=== PATIENT | male | born 1970 | race Caucasian/White ===

== ENCOUNTER 2019-05-15 18:36 | Emergency (ER) | payer BC ==
[~2019-05-15] VITALS: Ht 182.9 cm; Wt 110.7 kg
[2019-05-15] MEDS ORDERED: ASPIRIN 81 MG TAB.CHEW PO ONE (19:00)
[2019-05-15 19:08] LABS: BASO # 0.2 x10^3/uL (0.0-0.2); BASO % 1 % (0-3); EOS # 0.1 x10^3/uL (0.0-0.7); EOS % 1 % (0-3); HEMATOCRIT 47.4 % (39.0-53.0); LYMPH # 1.9 x10^3/uL (1.0-4.8); LYMPH % 14 % (24-48); MEAN CORPUSCULAR HEMOGLOBIN 28 pg (25-35); MEAN CORPUSCULAR HGB CONC 34 g/dL (31-37); MEAN CORPUSCULAR VOLUME 84 fL (79-100); MONO % 8 % (0-9); NEUT # 10.3 x10^3uL (1.8-7.7); NEUT % 76 % (31-73); PLATELET COUNT 252 x10^3/uL (140-400); RED BLOOD COUNT 5.63 x10^6/uL (4.30-5.70); RED CELL DISTRIBUTION WIDTH 14.1 % (11.5-14.5); WHITE BLOOD COUNT 13.5 x10^3/uL (4.0-11.0)
--- NOTE | 2019-05-15 19:14 | PHYS DOC ---
Past History Past Medical History: COPD, GERD, High Cholesterol, Hypertension, [place], Stroke Past Surgical History: Appendectomy, Cholecystectomy Alcohol Use: None Drug Use: None The HEART Score for CP Pts HEART Score for Chest Pain: HEART Score for Chest Pain Response (Comments) Value History Moderately Suspicious 1 ECG Nonspecific Repolarizatio 1 Age >45 - < 65 1 Risk Factors >3 Risk Factors or Hx CAD 2 Troponin < Normal Limit 0 Total 5 Risk Factors: Risk Factors: DM, Current or recent (<one month) smoker, HTN, HLP, family history of CAD, obesity. Risk Scores: Score 0 - 3: 2.5% MACE over next 6 weeks - Discharge Home Score 4 - 6: 20.3% MACE over next 6 weeks - Admit for Clinical Observation Score 7 - 10: 72.7% MACE over next 6 weeks - Early Invasive Strategies Adult General Chief Complaint Chief Complaint: CHEST PAIN HPI HPI 48-year-old male presents with chest pain that started around 4 PM. This is 3 hours ago. The patient was sitting in a chair working on some deer meat when the pain started. It is a moderate pressure sensation in the left side of his chest and upper abdomen. He is also feeling slightly short of breath, but denies diaphoresis. He thought it might be GERD and so he took some antacid without relief. At its worst the pain was 7 out of 10. It is currently 4 out of 10. Patient has significant cardiac history with previous heart attack or strokes. His last stress test was about a year ago. He does not use Nitro and does not usually get chest pains. He denies fever or chills. He does not report any other symptoms or complaints. Review of Systems Review of Systems Constitutional: Denies fever or chills [] Eyes: Denies change in visual acuity, redness, or eye pain [] HENT: Denies nasal congestion or sore throat [] Respiratory: Mild shortness of breath [] Cardiovascular: No additional information not addressed in HPI [] GI: Denies abdominal pain, nausea, vomiting, bloody stools or diarrhea [] : Denies dysuria or hematuria [] Musculoskeletal: Denies back pain or joint pain [] Integument: Denies rash or skin lesions [] Neurologic: Denies headache, focal weakness or sensory changes [] Endocrine: Denies polyuria or polydipsia [] All other systems were reviewed and found to be within normal limits, except as documented in this note. Current Medications Current Medications Current Medications Medications (Trade) Dose Ordered Sig/Daniela Start Time Stop Time Status Last Admin Dose Admin Aspirin (Children'S Aspirin) 324 mg 1X ONCE 05/15/19 19:00 05/15/19 19:01 DC 05/15/19 19:00 324 MG Nitroglycerin (Nitrostat) 0.4 mg PRN Q5MIN PRN 05/15/19 19:15 Allergies Allergies Allergies Coded Allergies Type Severity Reaction Last Updated Verified bacitracin Allergy Unknown 05/15/19 Yes neomycin Allergy Unknown 05/15/19 Yes polymyxin B Allergy Unknown 05/15/19 Yes Physical Exam Physical Exam Constitutional: Well developed, obese, well nourished, no acute distress, non- toxic appearance. [] HENT: Normocephalic, atraumatic, bilateral external ears normal, oropharynx moist, no oral exudates, nose normal. [] Eyes: PERRLA, EOMI, conjunctiva normal, no discharge. [] Neck: Normal range of motion, no tenderness, supple, no stridor. [] Cardiovascular:Heart rate regular rhythm, no murmur [] Lungs & Thorax: Bilateral breath sounds clear to auscultation [] Abdomen: Bowel sounds normal, soft, mild left upper quadrant tenderness, no masses, no pulsatile masses. [] Skin: Warm, dry, no erythema, no rash. [] Back: No tenderness, no CVA tenderness. [] Extremities: No tenderness, no cyanosis, no clubbing, ROM intact, no edema. [] Neurologic: Alert and oriented X 3, normal motor function, normal sensory function, no focal deficits noted. [] Psychologic: Affect normal, judgement normal, mood normal. [] Current Patient Data Vital Signs Vital Signs Date Time Temp Pulse Resp B/P (MAP) Pulse Ox O2 Delivery O2 Flow Rate FiO2 05/15/19 18:54 97.6 80 18 97 Room Air EKG EKG Sinus rhythm, rate 83, normal axis, no ST elevations or depressions. PVC.[] Radiology/Procedures Radiology/Procedures [] Impressions: EXAM: AP View of the chest DATE: 05/15/2019 6:48 PM INDICATION: Chest pain, short of air COMPARISON: No Prior FINDINGS/ IMPRESSION: Heart is borderline enlarged. Mediastinal prominence exaggerated by portable technique. Patchy opacities bilateral lung bases likely atelectasis. Trace left pleural effusion. No pneumothorax. Electronically signed by: Robert Fontanez MD (05/15/2019 7:19 PM) [facility] DICTATED AND SIGNED BY: ROBERT FONTANEZ MD DATE: 05/15/191918 CC: CARMEN JO DO; PCP,BONITA ~ Course & Med Decision Making Course & Med Decision Making Pertinent Labs and Imaging studies reviewed. (See chart for details) The patient was immediately given 324 of aspirin. His EKG did not show ST elevation. We will try sublingual nitroglycerin since patient is still having pain. The patient's EKG is unremarkable. His labs are unremarkable. His troponin is negative. The patient's arms were is a 5. I would like to admit the patient hospital for further troponin trending and observation. The patient has refused admission. I explained to him the risks. He understands. He also understands that he is signing out AMA. [] Dragon Disclaimer Dragon Disclaimer This electronic medical record was generated, in whole or in part, using a voice recognition dictation system. Departure Departure: Impression: Primary Impression: Chest pain Disposition: 07 AGAINST MEDICAL ADVICE Admitting Physician: Romelia Vargas Condition: GUARDED Referrals: PCP,BONITA (PCP) CARMEN JO DO May 15, 2019 19:14
[2019-05-15] MEDS ORDERED: NITROGLYCERIN SUBLINGUAL 0.4 MG BOTTLE OF 25. SL PRN (19:15)
[2019-05-15 19:21] LABS: CREATININE 0.7 mg/dL (0.7-1.3); GFR 120.4; POTASSIUM 3.9 mmol/L (3.5-5.1)
--- NOTE | 2019-05-15 19:22 | RAD ---
EXAM: AP View of the chest DATE: 05/15/2019 6:48 PM INDICATION: Chest pain, short of air COMPARISON: No Prior FINDINGS/ IMPRESSION: Heart is borderline enlarged. Mediastinal prominence exaggerated by portable technique. Patchy opacities bilateral lung bases likely atelectasis. Trace left pleural effusion. No pneumothorax. Electronically signed by: Robert Fontanez MD (05/15/2019 7:19 PM) [facility]
[2019-05-15 19:37] LABS: ALBUMIN 3.8 g/dL (3.4-5.0); TOTAL BILIRUBIN 0.6 mg/dL (0.2-1.0); TOTAL PROTEIN 7.5 g/dL (6.4-8.2)
[2019-05-15 20:11] VITALS: BP 167/96
--- NOTE | 2019-05-17 06:06 | EKG ---
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
== END 2019-05-15 20:22 | disposition left against medical advice (07) ==
LOC: ER 18:36
DX: R07.89 Other chest pain (principal); R10.12 Left upper quadrant pain; J44.9 Chronic obstructive pulmonary disease, unspecified; K21.9 Gastro-esophageal reflux disease without esophagitis; E78.00 Pure hypercholesterolemia, unspecified; I10 Essential (primary) hypertension; I25.2 Old myocardial infarction; Z86.73 Personal history of transient ischemic attack (TIA), and cerebral infarction without residual deficits; Z90.89 Acquired absence of other organs; Z90.49 Acquired absence of other specified parts of digestive tract; Z88.1 Allergy status to other antibiotic agents; Z88.8 Allergy status to other drugs, medicaments and biological substances
CPT/HCPCS: 36415; 71045; 80053; 83880; 84484; 85025; 93005; 99285

== ENCOUNTER 2021-06-30 17:42 | Emergency (ER) | payer BC, OTHER ==
[~2021-06-30] VITALS: Ht 182.9 cm; Wt 113.5 kg
[2021-06-30 17:55] VITALS: BP 180/107
[2021-06-30] MEDS ORDERED: PIP/TAZO PER PHARMACY MC PRN (18:30)
[2021-06-30] MEDS ORDERED: PIPERACILLIN/TAZOBACTAM 3.375 GM VIAL IV ONE (18:34)
[2021-06-30] MEDS ORDERED: IV NORMAL SALINE 50ML 50 ML ONE (18:34)
--- NOTE | 2021-06-30 18:39 | RAD ---
Exam: Left hand 3 views INDICATION: Swelling left thumb after penetrating injury 4 days ago TECHNIQUE: Frontal, lateral oblique views of the left hand Comparisons: None FINDINGS: Bone mineralization is normal. No acute or healed fractures. Soft tissues are unremarkable. Joint spa tin are well-maintained. IMPRESSION: No acute osseous abnormality Electronically signed by: Lacy Arredondo MD (06/30/2021 6:37 PM) [facility]
--- NOTE | 2021-06-30 18:40 | PHYS DOC ---
Past History Past Medical History: COPD, GERD, High Cholesterol, Hypertension, [place], Stroke (TAO AUSTIN APRN) Past Surgical History: Appendectomy, Cholecystectomy (TAO AUSTIN APRN) Alcohol Use: None Drug Use: None (TAO AUSTIN APRN) Adult General Chief Complaint Chief Complaint: HAND PROBLEM HPI HPI Patient is a 50-year-old male who presents to the emergency department complaining of left thumb swelling after impaling a metal pick into his thumb this past . 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 Patient states he also took 800 mg of ibuprofen and 1000 mg of Tylenol just prior to arrival to the emergency department. Patient reports a history of type 2 diabetes, hypertension, takes a blood thinner, a medication for hypercholesterol, anxiety, takes Metformin. Patient does not know the names of his other medications. Patient reports primary care at the [facility] in [place]. Patient states his last tetanus immunization was 4 years ago. Patient denies other medical complaints or medical concerns. Patient reports a past surgical history of appendectomy and cholecystectomy. (TAO AUSTIN APRN) Review of Systems Review of Systems 14 body systems of review of systems have been reviewed. See HPI for pertinent positives and negative responses, otherwise all other systems are negative, nonpertinent or noncontributory. Constitutional: Negative except as outlined in HPI above. Skin: Negative except as outlined in HPI above. Eyes: Negative except as outlined in HPI above. HENT: Negative except as outlined in HPI above. Respiratory: Negative except as outlined in HPI above. Cardiovascular: Negative except as outlined in HPI above. GI: Negative except as outlined in HPI above. : Negative except as outlined in HPI above. Musculoskeletal: Negative except as outlined in HPI above. Integument: Negative except as outlined in HPI above. Neurologic: Negative except as outlined in HPI above. Endocrine: Negative except as outlined in HPI above. Lymphatic: Negative except as outlined in HPI above. Psychiatric: Negative except as outlined in HPI above. (TAO AUSTIN APRN) Current Medications Current Medications Current Medications Medications (Trade) Dose Ordered Sig/Daniela Start Time Stop Time Status Last Admin Dose Admin Piperacillin Sod/ Tazobactam Sod (Zosyn Per Pharmacy) 1 each PRN DAILY PRN 06/30/21 18:30 UNV (TAO AUSTIN APRN) Allergies Allergies Allergies Coded Allergies Type Severity Reaction Last Updated Verified bacitracin Allergy Unknown 05/15/19 Yes neomycin Allergy Unknown 05/15/19 Yes polymyxin B Allergy Unknown 05/15/19 Yes (TAO AUSTIN APRN) Physical Exam Physical Exam Constitutional: Well developed, well nourished, no acute distress, non-toxic appearance. 50-year-old male in no apparent distress. HENT: Normocephalic, atraumatic. Eyes: Conjunctiva normal, no discharge. Neck: Normal range of motion, no stridor. Cardiovascular: No cyanosis appreciated, distal cap refill less than 2 seconds. Lungs & Thorax: Patient is in no respiratory distress, no audible adventitious lung sounds appreciated. Abdomen: Nontender, no abnormalities noted. Skin: Warm, dry, no erythema, no rash. See extremity note for focused skin examination. Back: No tenderness, no deformities. Extremities: No tenderness, no cyanosis, no clubbing, ROM intact, no edema. Except for left hand, there is a 1 mm puncture wound to palmar aspect thumb near the MCP joint, marked swelling of the thenar surfaces, distal cap refill greater than 3 seconds of the thumb, all 4 [place] signs of flexor sheath infection present of left thumb, limited passive range of motion of MCP and PIP joint of left thumb related to severe pain elicited. No drainage from puncture wound site appreciated. Marked erythema of the thenar area surfaces with whitening of skin surfaces of thumb distally. Neurologic: Alert and oriented X 3, normal motor function, normal sensory function, no focal deficits noted. Psychologic: Affect normal, judgement normal, mood normal. (TAO AUSTIN APRN) Current Patient Data Vital Signs Vital Signs Date Time Temp Pulse Resp B/P (MAP) Pulse Ox O2 Delivery O2 Flow Rate FiO2 06/30/21 17:55 99.1 90 16 180/107 (131) 96 Room Air (TAO AUSTIN APRN) EKG EKG [] (TAO AUSTIN APRN) Radiology/Procedures Radiology/Procedures [] (TAO AUSTIN APRN) Heart Score C/O Chest Pain: No Risk Factors: Risk Factors: DM, Current or recent (<one month) smoker, HTN, HLP, family history of CAD, obesity. Risk Scores: Risk Factors: DM, Current or recent (<one month) smoker, HTN, HLP, family history of CAD, obesity. (TAO AUSTIN APRN) Course & Med Decision Making Course & Med Decision Making Pertinent Labs and Imaging studies reviewed. (See chart for details) 50-year-old male, vital signs reviewed, resents emergency department concerning left thumb swelling after impaling metal pick into his left thumb on the palmar side of hand. Physical examination concerning for flexor tenosynovitis with underlying signs of compartment syndrome. Patient reports he received an antibiotic injection at a local urgent care, has taken 1 oral antibiotic, patient does not know his medications. Discussed with patient concerning signs for infectious process of thumb requiring surgical intervention, recommended transfer to medical facility with hand specialist, patient is amenable to ED planning. Will order x-ray left hand attention thumb, blood cultures x2, CBC, CMP, mag, Phos, saline lock, will defer further antibiotic treatment until consult with hand surgeon. Called and discussed patient case and ED work-up with hand surgeon/plastic surgeon specialist Dr. Trinh at [facility] in [facility] and also transferring physician Dr. Leonard at [facility] in [facility] who recommended emergent transport to [facility] emergency department for evaluation, recommended Zosyn infusion, Covid testing. Discussed with patient transfer to [facility] for evaluation of hand swelling with plastic surgeon, patient is amenable to this transfer. EMTALA transfer forms reviewed and signed. Patient is awaiting ambulance transport to [facility] emergency department. (TAO AUSTIN APRN) Course & Med Decision Making Did not see or evaluate patient. Did not discuss patient with DATAPOWER DEVELOPER. Agree with DATAPOWER DEVELOPER's work-up and disposition per note. (LIANNE CARDOSO MD) Dragon Disclaimer Dragon Disclaimer This electronic medical record was generated, in whole or in part, using a voice recognition dictation system. (TAO AUSTIN APRN) Departure Departure: Impression: Primary Impression: Other specified injury of long flexor muscle, fascia and tendon of left thumb at wrist and hand level, initial encounter Additional Impression: Swelling of left hand Disposition: 02 SHORT TERM [facility] (Patient transferred to [facility] in [facility] to Dr. Trinh plastic surgeon) Referrals: PCP,NO (PCP) Problem Qualifiers TAO AUSTIN APRN Jun 30, 2021 18:40 LIANNE CARDOSO MD Jun 30, 2021 19:14
[2021-06-30] MEDS ORDERED: MORPHINE SULFATE 10 MG/ML SYRINGE. ONE (18:45)
[2021-06-30] MEDS ORDERED: PIPERACILLIN/TAZOBACTAM 3.375 GM in IV NORMAL SALINE 50ML 50 ML IV SCH (18:45)
[2021-06-30] MEDS ORDERED: MORPHINE SULFATE 10 MG/ML SYRINGE. IV ONE (18:45)
[2021-06-30 18:46] LABS: CALCIUM 8.8 mg/dL (8.5-10.1); GFR 79.1; POTASSIUM 3.1 mmol/L (3.5-5.1)
[2021-06-30 18:47] LABS: BASO # 0.1 x10^3/uL (0.0-0.2); BASO % 0 % (0-3); EOS # 0.1 x10^3/uL (0.0-0.7); EOS % 1 % (0-3); HEMATOCRIT 44.4 % (39.0-53.0); HEMOGLOBIN 14.8 g/dL (13.0-17.5); LYMPH # 1.2 x10^3/uL (1.0-4.8); LYMPH % 8 % (24-48); MEAN CORPUSCULAR HEMOGLOBIN 29 pg (25-35); MEAN CORPUSCULAR HGB CONC 33 g/dL (31-37); MEAN CORPUSCULAR VOLUME 88 fL (79-100); MONO # 1.2 x10^3/uL (0.0-1.1); MONO % 8 % (0-9); NEUT % 83 % (31-73); PLATELET COUNT 153 x10^3/uL (140-400); RED BLOOD COUNT 5.04 x10^6/uL (4.30-5.70); RED CELL DISTRIBUTION WIDTH 14.4 % (11.5-14.5); WHITE BLOOD COUNT 14.5 x10^3/uL (4.0-11.0)
[2021-06-30 18:52] LABS: ALBUMIN 3.5 g/dL (3.4-5.0); ALBUMIN/GLOBULIN RATIO 0.9 (1.0-1.7); MAGNESIUM 2.4 mg/dL (1.8-2.4); PHOSPHORUS 3.6 mg/dL (2.6-4.7); TOTAL BILIRUBIN 0.5 mg/dL (0.2-1.0); TOTAL PROTEIN 7.2 g/dL (6.4-8.2)
[2021-06-30 20:04] LABS: INFLUENZA A PATIENT NEGATIVE (NEGATIVE); INFLUENZA B PATIENT NEGATIVE (NEGATIVE)
== END 2021-06-30 19:08 | disposition short-term general hospital (02) ==
LOC: ER 17:42
DX: S61.032A Puncture wound without foreign body of left thumb without damage to nail, initial encounter (principal); J44.9 Chronic obstructive pulmonary disease, unspecified; K21.9 Gastro-esophageal reflux disease without esophagitis; E78.00 Pure hypercholesterolemia, unspecified; I10 Essential (primary) hypertension; I25.2 Old myocardial infarction; Z20.822 Contact with and (suspected) exposure to COVID-19; Z86.73 Personal history of transient ischemic attack (TIA), and cerebral infarction without residual deficits; Z88.1 Allergy status to other antibiotic agents; Z88.8 Allergy status to other drugs, medicaments and biological substances; W22.8XXA Striking against or struck by other objects, initial encounter; Y93.89 Activity, other specified; Y92.89 Other specified places as the place of occurrence of the external cause; Y99.8 Other external cause status
CPT/HCPCS: 36415; 73130; 80053; 83735; 84100; 85025; 87040; 87428; 96365; 96375; 99285; C9803; J2270; J2543; J3010; U0003